=== PATIENT | female | born 1995 | race Caucasian/White ===

== ENCOUNTER 2017-07-01 09:21 | Emergency (ER) | payer OTHER ==
[~2017-07-01] VITALS: Ht 167.6 cm; Wt 56.7 kg
[~2017-07-01 09:21] MED LIST: BACTRIM DS 8001 TA1 PO; FLEXERIL5 MG PO; HYDROCODONE BIT1 T11 PO; KEFLEX500 M1 PO; KEFLEX500 MG PO; MACROBID100 M1 PO; MOTRIN600 MG PO; MOTRIN800 MG PO; NAPROSYN500 MG PO; NKHM; NORCO 5-325 TA1 EACH PO; PHENERGAN25 MG R; PRENATAL1 TA3 PO; Phenergan25 MG PO; TYLENOL 8 HOUR650 MG PO; ULTRAM50 MG PO
[2017-07-01] MEDS ORDERED: AUGMENTIN 875875 MG PO (11:10)
== END 2017-07-01 11:36 | disposition home or self-care (01) ==
LOC: ED 09:21
DX: S01.511A Laceration without foreign body of lip, initial encounter (principal); S00.01XA Abrasion of scalp, initial encounter; R51 Headache; Z79.899 Other long term (current) drug therapy; Y04.1XXA Assault by human bite, initial encounter; Y93.89 Activity, other specified; Y92.89 Other specified places as the place of occurrence of the external cause; Y99.9 Unspecified external cause status

== ENCOUNTER 2017-07-20 18:09 | Emergency (ER) | payer OTHER ==
[~2017-07-20] VITALS: Wt 54.4 kg
[~2017-07-20 18:09] MED LIST changes: +AUGMENTIN 875875 MG PO
[2017-07-20 18:52] LABS: BASO % 0.3 % (0.0-1.0); EOS # 0.2 10*3/uL (0.0-0.4); HEMATOCRIT 45.3 % (37.0-47.0); LYMPH # 3.8 10*3/uL (1.3-4.4); LYMPH % 35.7 % (27.0-41.0); MEAN CELL VOLUME 89.9 fl (81.0-99.0); MEAN CORPUSCULAR HGB 29.8 pg (27.0-31.0); MEAN CORPUSCULAR HGB CONC 33.1 g/dl (33.0-37.0); MEAN PLATELET VOLUME 9.8 fl (9.6-12.3); MONO # 0.9 10*3/uL (0.1-1.0); MONO % 8.4 % (3.0-9.0); NEUT # 5.6 10*3/uL (2.3-7.9); NEUT % 53.3 % (47.0-73.0); PLATELET COUNT AUTOMATED 244 10*3/uL (130-400); RED BLOOD COUNT 5.04 10*6/uL (4.10-5.10); RED CELL DISTRI WIDTH 13.4 % (0-14.5); WHITE BLOOD COUNT 10.6 10*3/uL (4.8-10.8)
[2017-07-20 19:05] LABS: BUN 10 mg/dl (7-24); CHLORIDE 106 mmol/L (98-107); CREATININE 1.02 mg/dL (0.55-1.02); POTASSIUM 3.2 mmol/L (3.5-5.1); SODIUM 140 mmol/L (136-145)
[2017-07-20 19:09] LABS: B-hCG (QUALITATIVE) NEGATIVE (NEGATIVE)
[2017-07-20] MEDS ORDERED: AMOXICILLIN500 M2 PO (21:33)
== END 2017-07-20 21:44 | disposition home or self-care (01) ==
LOC: ED 18:09
PROVIDERS: Emergency Medicine
DX: T88.6XXA Anaphylactic reaction due to adverse effect of correct drug or medicament properly administered, initial encounter (principal); Y92.89 Other specified places as the place of occurrence of the external cause; F17.200 Nicotine dependence, unspecified, uncomplicated; T36.8X5A Adverse effect of other systemic antibiotics, initial encounter; G89.29 Other chronic pain; M25.562 Pain in left knee; M25.561 Pain in right knee

== ENCOUNTER 2018-03-16 09:37 | Emergency (ER) | payer OTHER ==
[~2018-03-16] VITALS: Wt 56.7 kg
[~2018-03-16 09:37] MED LIST changes: +AMOXICILLIN500 M2 PO; +BACTRIM 400-801 EACH PO
[2018-03-16] MEDS ORDERED: FLAGYL500 MG PO (09:48)
== END 2018-03-16 10:06 | disposition home or self-care (01) ==
LOC: ED 09:37
DX: K04.7 Periapical abscess without sinus (principal)

== ENCOUNTER 2019-07-14 11:58 | Emergency (ER) | payer OTHER ==
[~2019-07-14] VITALS: Ht 162.5 cm; Wt 56.7 kg
[~2019-07-14 11:58] MED LIST changes: +FLAGYL500 MG PO
[2019-07-14] MEDS ORDERED: AMOXICILLIN500 M2 PO (12:12)
[2019-07-14] MEDS ORDERED: DIFLUCAN150 MG PO (12:12)
== END 2019-07-14 13:44 | disposition home or self-care (01) ==
LOC: ED 11:58
DX: O99.611 Diseases of the digestive system complicating pregnancy, first trimester (principal); K08.89 Other specified disorders of teeth and supporting structures; O26.891 Other specified pregnancy related conditions, first trimester; R11.2 Nausea with vomiting, unspecified; O99.331 Smoking (tobacco) complicating pregnancy, first trimester; G89.29 Other chronic pain; Z3A.01 Less than 8 weeks gestation of pregnancy; Z88.1 Allergy status to other antibiotic agents

== ENCOUNTER → 2019-08-28 | Outpatient (CLI) | payer OTHER ==
[~2019-08-28] MED LIST changes: +DIFLUCAN150 MG PO
== END | disposition home or self-care (01) ==
LOC: US 13:00
DX: Z34.81 Encounter for supervision of other normal pregnancy, first trimester (principal); Z3A.08 8 weeks gestation of pregnancy

== ENCOUNTER → 2019-10-26 | Outpatient (CLI) | payer OTHER | END | disposition home or self-care (01) | LOC: US 10:26 | DX: Z34.82 Encounter for supervision of other normal pregnancy, second trimester (principal); Z3A.19 19 weeks gestation of pregnancy ==

== ENCOUNTER → 2020-01-27 | Outpatient (CLI) | payer OTHER | END | disposition home or self-care (01) | LOC: US 10:00 | DX: Z34.83 Encounter for supervision of other normal pregnancy, third trimester (principal); Z3A.32 32 weeks gestation of pregnancy ==

== ENCOUNTER 2022-06-10 08:54 | Emergency (ER) | payer OTHER ==
[~2022-06-10] VITALS: Ht 162.5 cm; Wt 56.7 kg
== END 2022-06-10 11:36 | disposition home or self-care (01) ==
LOC: ED 08:54
DX: S61.213A Laceration without foreign body of left middle finger without damage to nail, initial encounter (principal); S61.215A Laceration without foreign body of left ring finger without damage to nail, initial encounter; W22.8XXA Striking against or struck by other objects, initial encounter; Y93.89 Activity, other specified; Y92.89 Other specified places as the place of occurrence of the external cause; Y99.8 Other external cause status

== ENCOUNTER 2023-12-19 10:00 | Emergency (ER) | payer OTHER | END 2023-12-19 13:33 | disposition home or self-care (01) | LOC: ED 10:00 | DX: S50.12XA Contusion of left forearm, initial encounter (principal); M25.512 Pain in left shoulder; Z88.1 Allergy status to other antibiotic agents; Z88.8 Allergy status to other drugs, medicaments and biological substances; Z98.890 Other specified postprocedural states; W19.XXXA Unspecified fall, initial encounter; Y93.89 Activity, other specified; Y92.009 Unspecified place in unspecified non-institutional (private) residence as the place of occurrence of the external cause; Y99.8 Other external cause status ==